=== PATIENT | male | born 1985 | race Caucasian/White ===

== ENCOUNTER 2017-01-11 15:07 | Emergency (ER) | payer SELFPAY ==
[~2017-01-11] VITALS: Ht 175.3 cm; Wt 145.1 kg
[2017-01-11 15:23] VITALS: BP 143/91; PULSE 94; RESP 20; TEMP 97.6; O2SAT 99
--- NOTE | 2017-01-11 15:25 | NUR ---
MSE performed per MAGGIE Garza in triage room.
--- NOTE | 2017-01-11 15:26 | NUR ---
Pt placed to ER waiting room in stable condition.
[2017-01-11] MEDS ORDERED: DIPH-TET-PERTUS Vaccine 0.5 ML VIAL (ADACEL) I.M. ONE (15:30)
[2017-01-11] MEDS ORDERED: KETOROLAC TROMETHAMINE 60 MG/2 ML VIAL IM ONE (15:30)
--- NOTE | 2017-01-11 15:30 | NUR ---
Pt placed to ER bed 07. Report given to MAGGIE Bruno.
--- NOTE | 2017-01-11 15:35 | NUR ---
Pt came into the ER in stable condition. Pt c/o left 2nd digit pain / w/ +swelling and +redness. Pt denies any trauma for injury. Pt stated that he noticed a blister yesterday at the base of nail and today woke up w/ increase swelling to finger. Pt denies taking any pain meds today. -sob -chest pain. No acute distress noted at this time, will continue to monitor
[2017-01-11] MEDS ORDERED: LIDOCAINE 1% 10 MG/ML, 20 ML MDV INJ ONE (15:45)
--- NOTE | 2017-01-11 16:20 | NUR ---
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
[2017-01-11 17:00] VITALS: BP 133/89; PULSE 90; RESP 15; TEMP 97.6; O2SAT 99
--- NOTE | 2017-01-11 17:00 | NUR ---
Patient given written and verbal discharge instructions and verbalizes understanding. ER MD discussed with patient the results and treatment provided. Given copies of tests performed in ER. Patient in stable condition. ID arm band removed. IV catheter removed intact and dressing applied, no active bleeding. Rx of Bacitracin, Motrin, bactrim, and keflex given. Patient educated on pain management and to follow up with PMD. Pain Scale 2/10. Opportunity for questions provided and answered.
== END 2017-01-11 17:00 | disposition home or self-care (01) ==
LOC: SED 15:07
DX: L03.012 Cellulitis of left finger (principal); F17.210 Nicotine dependence, cigarettes, uncomplicated; F15.10 Other stimulant abuse, uncomplicated; Z71.6 Tobacco abuse counseling
CPT/HCPCS: 11750; 90471; 90715; 96372; 99284; J1885; J2001